=== PATIENT | female | born 1980 | race Caucasian/White ===

== ENCOUNTER 2018-02-23 06:59 | Inpatient (IN) | payer MEDICAID ==
[2018-02-23] MEDS: CEFAZOLIN 3 GM in DEXTROSE 5% 100 ML IV (07:29)
[2018-02-23] MEDS ORDERED: OXYTOCIN 30 UNITS/LR 500 ML IV ×2 (07:30→10:00)
[2018-02-23] MEDS ORDERED: CARBOPROST 250 MCG INJ IM ×2 (07:30→10:00)
[2018-02-23] MEDS ORDERED: MISOPROSTOL 200 MCG TAB PR ×2 (07:30→10:00)
[2018-02-23] MEDS ORDERED: METHYLERGONOVINE 0.2 MG INJ IM ×2 (07:30→10:00)
[2018-02-23 07:34] LABS: ADD MAN DIFF? NO
[2018-02-23 07:36] LABS: BASOPHILS % 0.2 % (0.0-2.0); EOSINOPHILS # 0.1 10^3/ul (0.0-0.5); EOSINOPHILS % 1.2 % (0.0-7.0); HEMATOCRIT 37.4 % (37.0-47.0); HEMOGLOBIN 12.4 g/dl (12.0-16.0); IMMATURE GRANS #M 0.04 10^3/ul; IMMATURE GRANS % (M) 0.4 %; LYMPHOCYTES # 2.3 10^3/ul (0.8-2.9); LYMPHOCYTES % 24.8 % (15.0-51.0); MEAN CORPUSCULAR HEMOGLOBIN 26.9 pg (29.0-33.0); MEAN CORPUSCULAR HGB CONC 33.2 g/dl (32.0-37.0); MEAN CORPUSCULAR VOLUME 81.1 fl (82.0-101.0); MONOCYTE # 0.6 10^3/ul (0.3-0.9); MONOCYTES % 6.5 % (0.0-11.0); NEUTROPHIL # 6.2 10^3/ul (1.6-7.5); NEUTROPHILS % 66.9 % (39.0-77.0); PLATELET COUNT 290 10^3/UL (140-415); RED BLOOD COUNT 4.61 10^6/ul (4.20-5.40); RED CELL DISTRIBUTION WIDTH 16.1 % (11.5-14.5)
[2018-02-23 07:36] LABS: WHITE BLOOD COUNT 9.3 10^3/ul (4.8-10.8)
[2018-02-23] MEDS: LACTATED RINGER'S 1,000 ML IV (07:40)
[2018-02-23 07:55] LABS: INR 0.89; PROTIME 12.1 Sec (11.9-14.9); PT RATIO 0.9
[2018-02-23 07:56] LABS: PARTIAL THROMBOPLASTIN TIME 29.6 Sec (25.0-35.0)
[2018-02-23] MEDS ORDERED: ALBUTEROL 0.083% (NEB) 2.5 MG/3 ML AMP HHN (08:00)
[2018-02-23] MEDS ORDERED: METOCLOPRAMIDE 10 MG INJ IV (08:00)
[2018-02-23] MEDS ORDERED: FENTAnyl 50 MCG/ML VIAL IV ×3 (08:00)
[2018-02-23] MEDS ORDERED: HYDROmorphONE 1 MG/5 ML IV SYRINGE IV ×3 (08:00)
[2018-02-23] MEDS ORDERED: ONDANSETRON 4 MG INJ IV ×2 (08:00)
[2018-02-23] MEDS ORDERED: HYDROmorphONE 0.5 MG/0.5 ML SYG IV (08:00)
[2018-02-23] MEDS ORDERED: NALOXONE (0.4 MG/ML) INJ IV (08:00)
[2018-02-23] MEDS ORDERED: DIPHENHYDRAMINE 50 MG INJ IV ×2 (08:00)
[2018-02-23] MEDS ORDERED: morphine SULFATE/PF (10 MG/10 ML) INJ (09:11)
[2018-02-23] MEDS ORDERED: BUPIVACAINE 0.75%/DEXT (SPINAL) 2 ML INJ (09:11)
[2018-02-23] MEDS: DEXTROSE 5%-LR 1,000 ML IV ×2 (09:36→17:36)
[2018-02-23] MEDS ORDERED: CHLOROPROCAINE 3% (MPF) 20 ML INJ (09:37)
[2018-02-23] MEDS ORDERED: PHENYLephrine (100 MCG/ML) 5ML SYG ×3 (09:44→10:42)
[2018-02-23] MEDS ORDERED: METHYLERGONOVINE 0.2 MG TAB PO (10:00)
[2018-02-23] MEDS: OXYCODONE/ACETAMINOPHEN (5/325) TAB PO ×2 (10:00→18:00)
[2018-02-23] MEDS ORDERED: FENTAnyl 50 MCG/ML VIAL ×3 (10:10→10:38)
[2018-02-23 10:59] LABS: RAPID PLASMA REAGIN NONREACTIVE (NR)
[2018-02-23] MEDS: OXYTOCIN 30 UNITS/LR 500 ML IV ×2 (11:28→15:28)
[2018-02-23] MEDS: HYDROmorphONE 0.5 MG/0.5 ML SYG IV (12:07)
[2018-02-23] MEDS: SENNA/DOCUSATE NA (8.6MG/50MG) TAB PO (22:33)
[2018-02-23] MEDS: LANOLIN 7 GM TUBE TOP (22:33)
[2018-02-24] MEDS: OXYCODONE/ACETAMINOPHEN (5/325) TAB PO ×4 (02:00→23:37)
[2018-02-24] MEDS: HYDROmorphONE 0.5 MG/0.5 ML SYG IV (03:44)
[2018-02-24] MEDS: LACTATED RINGER'S 1,000 ML IV ×2 (05:11→13:00)
[2018-02-24 06:45] LABS: ADD MAN DIFF? NO
[2018-02-24 06:47] LABS: BASOPHILS % 0.2 % (0.0-2.0); EOSINOPHILS # 0.1 10^3/ul (0.0-0.5); HEMATOCRIT 32.5 % (37.0-47.0); HEMOGLOBIN 10.6 g/dl (12.0-16.0); IMMATURE GRANS #M 0.04 10^3/ul; IMMATURE GRANS % (M) 0.4 %; LYMPHOCYTES # 1.5 10^3/ul (0.8-2.9); LYMPHOCYTES % 16.1 % (15.0-51.0); MEAN CORPUSCULAR HEMOGLOBIN 26.8 pg (29.0-33.0); MEAN CORPUSCULAR HGB CONC 32.6 g/dl (32.0-37.0); MEAN CORPUSCULAR VOLUME 82.3 fl (82.0-101.0); MONOCYTE # 0.6 10^3/ul (0.3-0.9); MONOCYTES % 5.9 % (0.0-11.0); NEUTROPHIL # 7.1 10^3/ul (1.6-7.5); NEUTROPHILS % 76.4 % (39.0-77.0); PLATELET COUNT 236 10^3/UL (140-415); RED BLOOD COUNT 3.95 10^6/ul (4.20-5.40); RED CELL DISTRIBUTION WIDTH 16.6 % (11.5-14.5)
[2018-02-24 06:47] LABS: WHITE BLOOD COUNT 9.3 10^3/ul (4.8-10.8)
[2018-02-24] MEDS: SENNA/DOCUSATE NA (8.6MG/50MG) TAB PO ×2 (09:28→21:17)
[2018-02-25] MEDS: OXYCODONE/ACETAMINOPHEN (5/325) TAB PO ×3 (02:09→17:01)
[2018-02-25] MEDS: SENNA/DOCUSATE NA (8.6MG/50MG) TAB PO ×2 (08:25→21:38)
[2018-02-26] MEDS: OXYCODONE/ACETAMINOPHEN (5/325) TAB PO ×3 (02:00→10:00)
[2018-02-26] MEDS: MEASLES,MUMPS,RUBELLA VACCINE INJ SC* (09:00)
[2018-02-26] MEDS: SENNA/DOCUSATE NA (8.6MG/50MG) TAB PO (09:42)
[2018-02-26] MEDS: DIPHTH/TET/ACEL PERTUSS (ADULT) 0.5 ML VIAL IM* (11:27)
== END 2018-02-26 13:20 | disposition home or self-care (01) | DRG 766 ==
LOC: L-D 06:59 → PP1 14:17
PROVIDERS: Obstetrics & Gynecology
PROC: 10D00Z1 Extraction of Products of Conception, Low, Open Approach (ICD-10-PCS; principal; 2018-02-23 08:00)
PROC: 0UB70ZZ Excision of Bilateral Fallopian Tubes, Open Approach (ICD-10-PCS; 2018-02-23 08:00)
PROC: 4A1HXCZ Monitoring of Products of Conception, Cardiac Rate, External Approach (ICD-10-PCS; 2018-02-23 08:00)
DX: O34.219 Maternal care for unspecified type scar from previous cesarean delivery (principal); Z3A.39 39 weeks gestation of pregnancy; Z37.0 Single live birth; Z30.2 Encounter for sterilization; Z23 Encounter for immunization
CPT/HCPCS: 85025; 85610; 85730; 86592; 86850; 86900; 86901; 88302; 99464; J2400